=== PATIENT | male | born 1985 | race African-American/Black ===

== ENCOUNTER 2016-10-27 20:55 | Emergency (ER) | payer SELFPAY ==
[~2016-10-27] VITALS: Ht 177.8 cm; Wt 78.5 kg
[~2016-10-27 20:55] MED LIST: ATARAX,VISTARIL25 MG PO; NAPROSYN500 MG PO
[2016-10-27 21:27] VITALS: BP 127/94
== END 2016-10-27 21:28 ==
LOC: EME 20:55
DX: S20.309A Unspecified superficial injuries of unspecified front wall of thorax, initial encounter (principal); F10.129 Alcohol abuse with intoxication, unspecified; Y35.403A Legal intervention involving unspecified sharp objects, suspect injured, initial encounter
CPT/HCPCS: 99281; 99283